=== PATIENT | female | born 1970 | race Asian ===

== ENCOUNTER 2019-03-26 05:51 | Day surgery (SDC) | payer OTHER ==
[~2019-03-26] VITALS: Ht 173 cm; Wt 63.0 kg
[2019-03-26] MEDS ORDERED: fentaNYL 0.05 MG/ML VIAL ONE (07:44)
[2019-03-26] MEDS ORDERED: SEVOFLURANE 250 ML BTL INH ONE (07:44)
[2019-03-26] MEDS ORDERED: PROPOFOL 200 MG/20 ML VIAL IV ONE (07:44)
[2019-03-26] MEDS ORDERED: MIDAZOLAM 2 MG/2 ML VIAL ONE (07:44)
[2019-03-26] MEDS ORDERED: ONDANSETRON 4 MG/2 ML VIAL IVP PRN (08:20)
[2019-03-26] MEDS ORDERED: HYDROmorphone 1 MG/ML AMP IVP PRN ×2 (08:20→09:35)
[2019-03-26] MEDS ORDERED: HYDROmorphone PFS 2 MG/ML SYR ONE (09:37)
== END 2019-03-26 11:10 | disposition home or self-care (01) ==
LOC: MDS 05:51 → MMU 06:08 → MDS 11:10
PROVIDERS: ATTEND Obstetrics & Gynecology
DX: N92.1 Excessive and frequent menstruation with irregular cycle (principal)
CPT/HCPCS: 58563; 71045; J1170; J2250; J2704; J3010